=== PATIENT | female | born 1970 | race Caucasian/White ===

== ENCOUNTER 2023-09-23 06:05 | Day surgery (SDC) | payer OTHER ==
[2023-09-23 06:45] VITALS: RESP 18
[2023-09-23] MEDS ORDERED: Lactated Ringers 1,000 ML IV ONE (06:49)
[2023-09-23] MEDS ORDERED: Lactated Ringers 1,000 ML IV SCH (07:00)
[2023-09-23] MEDS ORDERED: Versed 2 MG/2 ML Injection ONE (08:16)
[2023-09-23] MEDS ORDERED: DIPRIVAN 200 MG/20 ML IV ONE ×2 (08:16→08:23)
[2023-09-23 09:04] VITALS: TEMP 97
[2023-09-23 09:19] VITALS: BP 116/65; PULSE 71; O2SAT 98
--- NOTE | 2023-09-23 13:36 | OP ---
SURGERY DATE/TIME: 09/23/2023 0816 PREOPERATIVE DIAGNOSIS: Anemia. POSTOPERATIVE DIAGNOSIS: Normal colon. PROCEDURE: Colonoscopy. SURGEON: Dr. Montgomery. ANESTHESIA: Medications given by anesthesia department. HISTORY: The patient is a 53-year-old white female presenting now for problems with anemia. The patient voices to have gastric bypass surgery before. The medication list provided no medications that should cause anemia. The patient is felt the need to have endoscopic evaluation. She was appraised of the risks of the procedure including the risk of perforation, phlebitis, untoward reaction to medication, bleeding and missed lesions. The patient verbalized her understanding and desired to have the procedure performed. DESCRIPTION OF PROCEDURE: The patient was given the medications by the anesthesia department. She had continuous pulse oximetry, ECG monitoring and intermittent blood pressure monitoring during the examination. She was placed in the left lateral decubitus position. A digital rectal examination was performed and revealed normal anal sphincter tone and no masses. The flexible Olympus pediatric colonoscope was used to intubate the rectum. A view of the colon was developed sequentially to the cecum including a short distance in the terminal ileum. No mucosal lesions were encountered. The scope was removed from the patient who tolerated the procedure well and was sent back to OP recovery in good condition. The prep was noted to be fair to good.
== END 2023-09-23 09:23 | disposition home or self-care (01) ==
LOC: SDC 06:05
PROVIDERS: ATTEND Family Medicine
DX: D64.9 Anemia, unspecified (principal); Z98.84 Bariatric surgery status
CPT/HCPCS: J2250; J2704